=== PATIENT | male | born 1985 | race Caucasian/White ===

== ENCOUNTER 2019-07-11 07:16 | Inpatient (IN) ==
[2019-07-11 08:00] LABS: Basophils % 0.3 % (0.0-0.8); Eosinophils # 0.1 10*3/uL (0.0-0.87); Eosinophils % 1.1 % (0.00-10.9); Hematocrit 36.8 VOL% (42.0-52.0); Hemoglobin 11.6 GM/DL (14.0-18.0); Immature Granulocytes % 0.5 %; Immature Granulocytes Absolute 0.05 #; Lymphocytes % 9.6 % (21.2-54.2); Mean Corpuscular HGB Conc 31.5 GM/DL (32-36); Mean Corpuscular Volume 87.2 FL (87-102); Mean Platelet Volume 10.2 FL (9.6-12.0); Monocytes % 10.8 % (1.7-12.7); Neutrophils % 77.7 % (38.7-73.9); Platelet Count 225 T/CUMM (130-400); Red Blood Count 4.22 MC/CUMM (3.8-5.5); Red Cell Distribution Width 13.3 % (9.3-17.3); White Blood Count 10.1 T/CUMM (4-12)
[2019-07-11 08:12] LABS: Calcium 8.7 MG/DL (8.5-10.1)
[2019-07-11] MEDS ORDERED: FAMOTIDINE 20 MG TABLET PO ONE (08:20)
[2019-07-11] MEDS ORDERED: DIAZEPAM 5 MG TABLET PO ONE (08:20)
[2019-07-11] MEDS ORDERED: ALBUTEROL 2.5 MG/3 ML NEB RESP TX ONE (08:20)
[2019-07-11] MEDS ORDERED: ceFAZolin 1,000 MG VIAL ONE (11:53)
[2019-07-11] MEDS ORDERED: LACTULOSE 20 GM/30 ML UDCUP PO PRN (12:37)
[2019-07-11] MEDS ORDERED: BISACODYL 10 MG SUPP RECTAL PRN (12:37)
[2019-07-11] MEDS ORDERED: MAGNESIUM HYDROXIDE SUSP 30 ML UDCUP PO PRN (12:37)
[2019-07-11] MEDS ORDERED: diphenhydrAMINE CAP 25 MG CAPSULE PO PRN (12:37)
[2019-07-11] MEDS ORDERED: ONDANSETRON 4 MG/2 ML VIAL IV PRN (12:37)
[2019-07-11] MEDS ORDERED: PROMETHAZINE 25 MG/1 ML VIAL IM PRN (12:37)
[2019-07-11] MEDS ORDERED: MORPHINE 4 MG/1 ML VIAL IV PRN (12:37)
[2019-07-11] MEDS ORDERED: IBUPROFEN 600 MG TABLET PO PRN (12:40)
[2019-07-11] MEDS ORDERED: LIDOCAINE 2% 5 ML VIAL ONE (12:55)
[2019-07-11] MEDS ORDERED: SEVOFLURANE 1 UNIT/15 MINUTE INH ONE (12:55)
[2019-07-11] MEDS ORDERED: propofoL 200 MG/20 ML VIAL IV ONE (12:55)
[2019-07-11] MEDS ORDERED: MIDAZOLAM 2 MG/2 ML VIAL ONE (12:56)
[2019-07-11] MEDS ORDERED: ONDANSETRON 4 MG/2 ML VIAL ONE ×2 (12:56)
[2019-07-11] MEDS ORDERED: GLYCOPYRROLATE 0.4 MG/2 ML VIAL ONE (12:56)
[2019-07-11] MEDS ORDERED: fentaNYL 100 MCG/2 ML VIAL ONE (12:56)
[2019-07-11] MEDS ORDERED: NEOSTIGMINE 10 MG/10 ML VIAL ONE (12:56)
[2019-07-11] MEDS ORDERED: ROCURONIUM 100 MG/10 ML VIAL IV ONE (12:56)
[2019-07-11] MEDS ORDERED: KETOROLAC 30 MG/1 ML VIAL ONE (12:56)
[2019-07-11] MEDS ORDERED: DEXAMETHASONE 4 MG/1 ML VIAL ONE (12:56)
[2019-07-11] MEDS: LACTATED RINGERS 1,000 ML IV SCH (13:16)
[2019-07-11] MEDS: CITALOPRAM 40 MG TABLET PO SCH (21:27)
[2019-07-11] MEDS: OLANZapine 5 MG TABLET PO SCH (21:27)
[2019-07-11] MEDS: SULFAMETHOX/TRIMETHOPRIM 800-160 MG TABLET PO SCH (21:27)
[2019-07-11] MEDS: ceFAZolin 1,000 MG in SYRINGE 1 EACH IV SCH (21:28)
[2019-07-12] MEDS: ceFAZolin 1,000 MG in SYRINGE 1 EACH IV SCH ×3 (03:33→20:37)
[2019-07-12] MEDS: LACTATED RINGERS 1,000 ML IV SCH (09:15)
[2019-07-12] MEDS: SULFAMETHOX/TRIMETHOPRIM 800-160 MG TABLET PO SCH ×2 (10:10→20:37)
[2019-07-12] MEDS: CITALOPRAM 40 MG TABLET PO SCH (20:37)
[2019-07-12] MEDS: OLANZapine 5 MG TABLET PO SCH (20:37)
[2019-07-13] MEDS: ceFAZolin 1,000 MG in SYRINGE 1 EACH IV SCH ×2 (04:14→09:25)
[2019-07-13] MEDS ORDERED: propofoL 200 MG/20 ML VIAL IV ONE (08:25)
[2019-07-13] MEDS ORDERED: SEVOFLURANE 1 UNIT/15 MINUTE INH ONE (08:25)
[2019-07-13] MEDS ORDERED: LIDOCAINE 2% 5 ML VIAL ONE (08:25)
[2019-07-13] MEDS ORDERED: DEXAMETHASONE 4 MG/1 ML VIAL ONE (08:25)
[2019-07-13] MEDS ORDERED: ONDANSETRON 4 MG/2 ML VIAL ONE (08:25)
[2019-07-13] MEDS ORDERED: fentaNYL 100 MCG/2 ML VIAL ONE (08:25)
[2019-07-13] MEDS ORDERED: PHENYLEPHRINE 1 MG/10 ML SYRINGE IV ONE (08:26)
[2019-07-13] MEDS ORDERED: MIDAZOLAM 2 MG/2 ML VIAL ONE (08:26)
[2019-07-13] MEDS ORDERED: KETOROLAC 30 MG/1 ML VIAL ONE (08:26)
[2019-07-13] MEDS ORDERED: LACTATED RINGERS 1,000 ML IV ONE (08:26)
[2019-07-13 09:20] VITALS: BP 103/52
[2019-07-13] MEDS: SULFAMETHOX/TRIMETHOPRIM 800-160 MG TABLET PO SCH (09:26)
== END 2019-07-13 12:45 | DRG 496 ==
LOC: EDBD → EDUNIT# → N.ED 07:16 → N.EDINP 07:27 → N.3W 09:47
PROVIDERS: ADMIT Orthopaedic Surgery; ATTEND Orthopaedic Surgery